=== PATIENT | male | born 1975 | race Caucasian/White ===

== ENCOUNTER → 2018-04-26 | Outpatient (CLI) | payer BC | END | disposition home or self-care (01) | LOC: HKI 14:41 | DX: M54.16 Radiculopathy, lumbar region (principal) | CPT/HCPCS: 73502 ==

== ENCOUNTER → 2018-05-02 | Outpatient (CLI) | payer BC | END | disposition home or self-care (01) | LOC: HKI 08:49 | DX: M54.9 Dorsalgia, unspecified (principal) | CPT/HCPCS: G0463 ==